=== PATIENT | female | born 1955 | race Caucasian/White ===

== ENCOUNTER → 2020-10-23 | Outpatient (CLI) | payer OTHER ==
--- NOTE | 2020-10-29 17:54 | SLE ---
[facility] [place] [address] [place] [address] POLYSOMNOGRAPHY STUDY Name: CECILIA JAMES Room #: REG [facility]#: [id number] Admission: 10/23/20 Attend Phys: Marco Antonio Smith MD Discharge: Date of : 53 Report #: [id number] THIS REPORT FOR: cc: Livier Sheets MD, Michelle MD Khan, Aman U. MD ~ DATE OF SERVICE: 10/24/2020 SLEEP STUDY ATTENDING PHYSICIAN: Dr. Marco Antonio Smith. The patient is a 65-year-old who weighs 133 pounds with a BMI of 25.1. The patient's [place] score was 1. The patient underwent home sleep study performed at [facility]. Total recording time was 610 minutes. During the night study, the patient had 30 obstructive apneas, no mixed or central apneas and 65 hypopneas. The patient's AHI was 9.5 per hour with a supine AHI of 22 per hour. Nocturnal oximetry study revealed an average oxygen saturation of 93% with the lowest of 83%. 11 minutes were spent with oxygen saturation of less than 90%. EKG monitoring revealed mean heart rate of 63 beats per minute with a maximum 85 beats per minute. IMPRESSION: 1. Mild obstructive sleep apnea with moderate increase during supine sleep. Total AHI 9.5 per hour with a supine AHI of 22 per hour. 2. Nocturnal hypoxia secondary to obstructive sleep apnea. RECOMMENDATIONS: 1. The patient's sleep apnea is mild. If the patient is clinically symptomatic or has comorbid conditions, then consider treatment of sleep apnea with either CPAP versus oral appliance. 2. Avoid supine sleep. 3. Cautioned regarding driving until symptoms of sleep apnea resolve. 4. Avoid [employer] depressants. <ELECTRONICALLY SIGNED> By: Manny Boland MD 10/29/20 [id number] Manny Boland MD /nt
== END ==
LOC: SLEEPLAB 12:04
PROVIDERS: ATTEND Pediatrics
DX: G47.33 Obstructive sleep apnea (adult) (pediatric) (principal); R09.02 Hypoxemia